=== PATIENT | male | born 2000 | race Caucasian/White ===

== ENCOUNTER 2018-09-09 13:39 | Emergency (ER) | payer SELFPAY | END 2018-09-09 17:21 | disposition home or self-care (01) | LOC: JER 13:39 ==

== ENCOUNTER 2024-03-14 18:26 | Emergency (ER) | payer OTHER ==
[2024-03-14 18:50] VITALS: BP 151/91; PULSE 80; RESP 18; TEMP 97.9; BMI 31.5
== END 2024-03-14 20:08 | disposition home or self-care (01) ==
LOC: JER 18:26
DX: K62.5 Hemorrhage of anus and rectum (principal)
CPT/HCPCS: 99283-25